=== PATIENT | female | born 1935 | race Caucasian/White ===

== ENCOUNTER → 2017-01-01 | Outpatient (CLI) | payer MEDICARE, BC ==
--- NOTE | 2017-01-01 14:37 | Diagnostic Imaging Report ---
EXAMINATION: Magnetic resonance imaging of the left knee without intravenous contrast. DATE: 01/01/2017 COMPARISON: None. INDICATION: Patient states getting out of car and felt a pop and pain in her posterior left knee since Wednesday. TECHNIQUE: Multiplanar, multisequence non contrast enhanced MR imaging was accomplished. FINDINGS: MENISCI: There is mild fraying along the posterior inferior aspect of the medial meniscus though no full-thickness tear is present. There is mild fraying along the posterior horn of the lateral meniscus along the posterior anchor with no definite full-thickness tear. LIGAMENTS AND TENDONS: The anterior and posterior cruciate ligaments are intact. The medial collateral ligament is intact. The iliotibial band, mid third lateral capsular ligament, fibular collateral ligament, biceps femoris tendon and conjoined tendon are intact. The quadriceps tendon and patella ligament are intact. JOINT: The articular cartilage surfaces are intact. There is a small joint effusion. BONE: There is unremarkable bone marrow signal. Specifically, negative for fracture, osteomyelitis, osteonecrosis, or marrow replacing process. BURSAE AND SOFT TISSUES: There is a small amount of fluid in the medial head of the gastrocnemius bursa. There is also some fluid within the tissue planes along the gastrocnemius muscles posteriorly likely secondary to a partial ruptured Teague's cyst. The muscles and tendons show no muscle tear or tendon tears. There are no loose bodies demonstrated. IMPRESSION: 1. Joint effusion with some fluid noted in the muscle tissue planes along the gastrocnemius consistent with partial rupture of Teague's cyst. 2. 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 Dictated by: Dictated on workstation # [id number]
== END ==
LOC: RAD 12:48
PROVIDERS: ATTEND Nurse Practitioner
DX: M23.262 Derangement of other lateral meniscus due to old tear or injury, left knee (principal); M25.462 Effusion, left knee
CPT/HCPCS: 73721